=== PATIENT | male | born 1970 | race Caucasian/White ===

== ENCOUNTER 2017-08-31 12:10 | Inpatient (IN) | payer OTHER ==
[2017-08-31 16:37] VITALS: BMI 27.3
[2017-08-31] MEDS ORDERED: MAGNESIUM CITRATE 300 ML BOTTLE PO PRN (20:22)
[2017-08-31] MEDS ORDERED: guaiFENesin/D-METHORPHAN HB 10 ML UNIT-DOSE CUPS PO PRN (20:22)
[2017-08-31] MEDS ORDERED: P-EPHED 60MG/TRIPROLIDI 2.5MG TABLET PO PRN (20:22)
[2017-08-31] MEDS ORDERED: LOPERAMIDE HCL 2 MG CAPSULE PO PRN (20:22)
[2017-08-31] MEDS ORDERED: ACETAMINOPHEN 325 MG TABLET (FP) PO PRN (20:22)
[2017-08-31] MEDS ORDERED: MENTHOL/PHENOL 1 EACH UD MM PRN (20:22)
[2017-08-31] MEDS ORDERED: IBUPROFEN 400 MG TABLET (FP) PO PRN (20:22)
[2017-08-31] MEDS ORDERED: MAGNESIUM HYDROX 2400MG/30ML ORAL SUSPENSION 30 ML CUP PO PRN (20:22)
[2017-08-31] MEDS ORDERED: MAG HYDROX/AL HYDROX/SIMETH 30 ML UNIT-DOSE CUP PO PRN (20:22)
--- NOTE | 2017-08-31 20:31 | HP ---
Admission ROS [facility] Chief Complaint: I am here for rehab. Allergies/Adverse Reactions: Allergies Allergy/AdvReac Type Severity Reaction Status Date / Time No Known Allergies Allergy Verified 08/31/17 17:03 History of Present Illness: 47 yo male with hx of IV heroin, cocaine, Xanax dependence is here seeking rehab after completing detox at [facility] 08/24/17 - 08/31/17. PMHX: anxiety, depression, bipolar. Reports attempted suicide at 9 yo by hanging and attempted suicide because he didn't want to live in the [place], after he immigrated from the [place]. Reports hx of OD three times, last time about one year ago. Currently denies suicidal / homicidal ideation. Longest period of sobriety 10 years. Reports relapsed 2008 after buying house and feeling overwhelmed. Exam Limitations: No Limitations - Ebola screening Have you traveled outside of the country in the last 21 days: No Have you had contact with anyone from an Ebola affected area: No Have you been sick,other than usual withdrawal symptoms: No Do you have a fever: No - Review of Systems Constitutional: Chills, Night Sweats, Changes in sleep EENT: reports: No Symptoms Reported Respiratory: reports: No Symptoms reported Cardiac: reports: No Symptoms Reported GI: reports: No Symptoms Reported : reports: No Symptoms Reported Musculoskeletal: reports: Back Pain (low back pain 02/05) Integumentary: reports: No Symptoms Reported Neuro: reports: Tingling (both feet) Endocrine: reports: Excessive Sweating Hematology: reports: No Symptoms Reported Psychiatric: reports: Orientated x3, Anxious Other Systems: Reviewed and Negative Patient History - Patient Medical History Hx Anemia: No Hx Asthma: No Hx Chronic Obstructive Pulmonary Disease (COPD): No Hx Cancer: No Hx Cardiac Disorders: No Hx Congestive Heart Failure: No Hx Hypertension: No Hx Hypercholesterolemia: No Hx Pacemaker: No HX Cerebrovascular Accident: No Hx Seizures: No Hx Dementia: No Hx Diabetes: No Hx Gastrointestinal Disorders: No Hx Liver Disease: No Hx Genitourinary Disorders: No Hx Sexually Transmitted Disorders: No Hx Renal Disease (ESRD): No Hx Thyroid Disease: No Hx Human Immunodeficiency Virus (HIV): No Hx Hepatitis C: No Hx Depression: Yes Hx Suicide Attempt: Yes (at 9 years old ) Hx Bipolar Disorder: Yes Hx Schizophrenia: No - Patient Surgical History Past Surgical History: No Hx Neurologic Surgery: No Hx Cataract Extraction: No Hx Cardiac Surgery: No Hx Lung Surgery: No Hx Breast Surgery: No Hx Breast Biopsy: No Hx Abdominal Surgery: No Hx Appendectomy: No Hx Cholecystectomy: No Hx Genitourinary Surgery: No Hx Orthopedic Surgery: No - PPD History Previous Implant?: No Documented Results: Negative w/o proof PPD to be Administered?: Yes - Reproductive History Patient is a Female of Child Bearing Age (11 -55 yrs old): No - Smoking Cessation Smoking history: Current some day smoker Have you smoked in the past 12 months: Yes Aproximately how many cigarettes per day: 2 Hx Chewing Tobacco Use: No Initiated information on smoking cessation: Yes 'Breaking Loose' booklet given: 08/31/17 - Substance & Tx. History Hx Alcohol Use: No Hx Substance Use: Yes Substance Use Type: Cocaine, Heroin, Tranquilizers Hx Substance Use Treatment: Yes ([facility] 08/24/17 -08/31/2017) - Substances Abused Heroin Route: Injection Frequency: Daily Amount used: 1 gram and up Age of first use: 25 Date of Last Use: 08/24/17 Alprazolam (Xanax) Route: Oral Frequency: 3-6 times per week Amount used: 1 - 2 Age of first use: 46 Date of Last Use: 08/23/17 Cocaine Route: Inhalation Frequency: 3-6 times per week Amount used: 1/2 gram Age of first use: 15 Date of Last Use: 09/21/17 Family Disease History - Family Disease History Family Disease History: Diabetes: Mother (alive ), Other: Father (, [place], Cocaine and Alcohol), Mother Admission Physical Exam [facility] - Vital Signs Vital Signs: Vital Signs - 24 hr 08/31/17 16:34 Temperature 97.7 F Pulse Rate 60 Respiratory 18 Rate Blood Pressure 138/75 - Physical General Appearance: Yes: No Apparent Distress, Nourished, Appropriately Dressed , Anxious HEENTM: Yes: EOMI, Hearing grossly Normal, Normal ENT Inspection, Normocephalic , Normal Voice, JANAE, Pharynx Normal, Tm's normal Respiratory: Yes: Chest Non-Tender, Lungs Clear, Normal Breath Sounds, No Respiratory Distress, No Accessory Muscle Use Neck: Yes: No masses,lesions,Nodules, Trachea in good position Breast: Yes: Breast Exam Deferred Cardiology: Yes: Regular Rhythm, Regular Rate Abdominal: Yes: Normal Bowel Sounds, Non Tender, Flat, Soft Genitourinary: Yes: Within Normal Limits Back: Yes: Normal Inspection Musculoskeletal: Yes: full range of Motion, Gait Steady, Pelvis Stable Extremities: Yes: Normal Capillary Refill, Normal Inspection, Normal Range of Motion, Non-Tender Neurological: Yes: 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, Fully Oriented, Alert, Motor Strength 5/5, Depressed Affect Integumentary: Yes: Normal Color, Warm, Moist Lymphatic: Yes: Within Normal Limits - Diagnostic (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 (2) Cocaine dependence Current Visit: Yes Status: Chronic Qualifiers: Substance use status: uncomplicated Qualified Code(s): F14.20 - Cocaine dependence, uncomplicated (3) Opioid dependence Current Visit: Yes Status: Chronic (4) IV drug abuse Current Visit: Yes Status: Chronic (5) Difficulty sleeping Current Visit: Yes Status: Chronic (6) Psychiatric disorder Current Visit: Yes Status: Suspected (7) Low back pain Current Visit: Yes Status: Acute Qualifiers: Chronicity: acute Back pain laterality: midline Sciatica presence: without sciatica Qualified Code(s): M54.5 - Low back pain BHS Breath Alcohol Content Breath Alcohol Content: 0 Urine Drug Screen - Results Drug Screen Negative: No
[2017-08-31] MEDS ORDERED: TUBERCULIN PPD 5 TU/0.1ML VIAL ID ONE (22:09)
[2017-08-31] MEDS: CYCLOBENZAPRINE HCL 5 MG TABLET PO SCH (22:35)
[2017-08-31] MEDS: THIAMINE HCL 100 MG TABLET (FP) PO SCH (22:35)
[2017-08-31] MEDS: hydrOXYzine PAMOATE 50 MG CAPSULE (FP) PO PRN (22:35)
[2017-08-31 22:42] LABS: URINE APPEARANCE CLEAR; URINE BILIRUBIN NEGATIVE (NEGATIVE); URINE BLOOD NEGATIVE (NEGATIVE); URINE COLOR YELLOW; URINE GLUCOSE (UA) NEGATIVE (NEGATIVE); URINE KETONE NEGATIVE (NEGATIVE); URINE LEUK ESTERASE NEGATIVE (NEGATIVE); URINE NITRITE NEGATIVE (NEGATIVE); URINE PROTEIN NEGATIVE (NEGATIVE); URINE UROBILINOGEN NEGATIVE mg/dL (0.2-1.0)
[2017-09-01] MEDS: CYCLOBENZAPRINE HCL 5 MG TABLET PO SCH ×3 (06:26→21:26)
[2017-09-01 10:14] LABS: HEMATOCRIT 36.8 % (35.4-49); HEMOGLOBIN 12.8 GM/dL (11.7-16.9); MCH 31.1 pg (25.7-33.7); MCHC 34.6 g/dl (32.0-35.9); MEAN CELL VOLUME 89.8 fl (80-96); MEAN PLT VOLUME 7.8 fl (7.5-11.1); PLATELET COUNT 204 K/MM3 (134-434); WHITE BLOOD COUNT 5.4 K/mm3 (4.0-10.0)
[2017-09-01] MEDS: PRENATAL VITAMINS W/ FOLIC ACID TABLET (FP) PO SCH (10:15)
[2017-09-01 10:32] LABS: ALBUMIN 3.4 g/dl (3.4-5.0); CHLORIDE 109 mmol/L (98-107); CREATININE 1.2 mg/dL (0.7-1.3); POTASSIUM 4.7 mmol/L (3.5-5.1); SGOT/AST 14 U/L (15-37); SODIUM 142 mmol/L (136-145)
[2017-09-01 10:44] LABS: ALK PHOS 67 U/L (45-117); ANION GAP 7 (8-16); BILIRUBIN,TOTAL 0.5 mg/dL (0.2-1.0); BLOOD UREA NITROGEN 17 mg/dL (7-18); CALCIUM 8.4 mg/dL (8.5-10.1); CO2 26 mmol/L (21-32); GLUCOSE,RANDOM 87 mg/dL (74-106); SGPT/ALT 24 U/L (12-78); TOT PROT 6.6 g/dl (6.4-8.2)
--- NOTE | 2017-09-01 12:01 | EKG ---
Test Reason : Blood Pressure : / mmHG Vent. Rate : 061 BPM Atrial Rate : 061 BPM P-R Int : 142 ms QRS Dur : 084 ms QT Int : 428 ms P-R-T Axes : 091 067 061 degrees QTc Int : 430 ms NORMAL SINUS RHYTHM NORMAL ECG NO PREVIOUS ECGS AVAILABLE Confirmed by MD Dalton, Garfield ([id number]) on 09/01/2017 12:01:07 PM Referred By: Confirmed By:Garfield Hoffman MD
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
[2017-09-01] MEDS: GABAPENTIN 100 MG CAPSULE (FP) PO SCH ×2 (14:26→21:26)
[2017-09-01] MEDS: QUEtiapine FUMARATE 100 MG TABLET (FP) PO SCH (21:26)
[2017-09-01] MEDS: THIAMINE HCL 100 MG TABLET (FP) PO SCH (21:26)
[2017-09-02] MEDS: CYCLOBENZAPRINE HCL 5 MG TABLET PO SCH ×3 (06:23→21:27)
[2017-09-02] MEDS: GABAPENTIN 100 MG CAPSULE (FP) PO SCH ×3 (06:23→21:27)
[2017-09-02] MEDS: PRENATAL VITAMINS W/ FOLIC ACID TABLET (FP) PO SCH (10:27)
[2017-09-02] MEDS: THIAMINE HCL 100 MG TABLET (FP) PO SCH (21:27)
[2017-09-02] MEDS: QUEtiapine FUMARATE 100 MG TABLET (FP) PO SCH (21:27)
[2017-09-03] MEDS: GABAPENTIN 100 MG CAPSULE (FP) PO SCH ×3 (06:22→21:25)
[2017-09-03] MEDS: CYCLOBENZAPRINE HCL 5 MG TABLET PO SCH ×3 (06:23→21:25)
[2017-09-03] MEDS: PRENATAL VITAMINS W/ FOLIC ACID TABLET (FP) PO SCH (10:24)
[2017-09-03] MEDS: THIAMINE HCL 100 MG TABLET (FP) PO SCH (21:24)
[2017-09-03] MEDS: QUEtiapine FUMARATE 100 MG TABLET (FP) PO SCH (21:25)
[2017-09-04] MEDS: CYCLOBENZAPRINE HCL 5 MG TABLET PO SCH ×3 (06:20→21:25)
[2017-09-04] MEDS: GABAPENTIN 100 MG CAPSULE (FP) PO SCH ×3 (06:20→21:25)
[2017-09-04] MEDS: PRENATAL VITAMINS W/ FOLIC ACID TABLET (FP) PO SCH (10:19)
--- NOTE | 2017-09-04 17:09 | PN ---
[facility] Progress Note Note: Vital Signs Temperature 98.9 F 09/04/17 07:01 Pulse Rate 75 09/04/17 07:01 Respiratory Rate 18 09/04/17 07:01 Blood Pressure 100/75 09/04/17 07:01 O2 Sat by Pulse Oximetry (%) Laboratory Last Values WBC 5.4 K/mm3 (4.0-10.0) 09/01/17 07:00 RBC 4.10 M/mm3 (4.00-5.60) 09/01/17 07:00 Hgb 12.8 GM/dL (11.7-16.9) 09/01/17 07:00 Hct 36.8 % (35.4-49) 09/01/17 07:00 MCV 89.8 fl (80-96) 09/01/17 07:00 MCH 31.1 pg (25.7-33.7) 09/01/17 07:00 MCHC 34.6 g/dl (32.0-35.9) 09/01/17 07:00 RDW 14.0 % (11.9-15.9) 09/01/17 07:00 Plt Count 204 K/MM3 (134-434) 09/01/17 07:00 MPV 7.8 fl (7.5-11.1) 09/01/17 07:00 Sodium 142 mmol/L (136-145) 09/01/17 07:00 Potassium 4.7 mmol/L (3.5-5.1) 09/01/17 07:00 Chloride 109 mmol/L (98-107) H 09/01/17 07:00 Carbon Dioxide 26 mmol/L (21-32) 09/01/17 07:00 Anion Gap 7 (8-16) L 09/01/17 07:00 BUN 17 mg/dL (7-18) 09/01/17 07:00 Creatinine 1.2 mg/dL (0.7-1.3) 09/01/17 07:00 Creat Clearance w eGFR > 60 (>60) 09/01/17 07:00 Random Glucose 87 mg/dL (74-106) 09/01/17 07:00 Calcium 8.4 mg/dL (8.5-10.1) L 09/01/17 07:00 Total Bilirubin 0.5 mg/dL (0.2-1.0) 09/01/17 07:00 AST 14 U/L (15-37) L 09/01/17 07:00 ALT 24 U/L (12-78) 09/01/17 07:00 Alkaline Phosphatase 67 U/L (45-117) 09/01/17 07:00 Total Protein 6.6 g/dl (6.4-8.2) 09/01/17 07:00 Albumin 3.4 g/dl (3.4-5.0) 09/01/17 07:00 Urine Color Yellow 08/31/17 20:38 Urine Appearance Clear 08/31/17 20:38 Urine pH 5.0 (5.0-8.0) 08/31/17 20:38 Ur Specific [place] 1.021 (1.001-1.035) 08/31/17 20:38 Urine Protein Negative (NEGATIVE) 08/31/17 20:38 Urine Glucose (UA) Negative (NEGATIVE) 08/31/17 20:38 Urine Ketones Negative (NEGATIVE) 08/31/17 20:38 Urine Blood Negative (NEGATIVE) 08/31/17 20:38 Urine Nitrite Negative (NEGATIVE) 08/31/17 20:38 Urine Bilirubin Negative (NEGATIVE) 08/31/17 20:38 Urine Urobilinogen Negative mg/dL (0.2-1.0) 08/31/17 20:38 Ur Leukocyte Esterase Negative (NEGATIVE) 08/31/17 20:38 RPR Titer Nonreactive (NONREACTIVE) 09/01/17 07:00 HIV 1&2 Antibody Screen Negative 09/01/17 07:00 HIV P24 Antigen Negative 09/01/17 07:00 Patient requested to review albs with provider. Lab results reviewed with patient and verbalize understanding.
[2017-09-04] MEDS: QUEtiapine FUMARATE 100 MG TABLET (FP) PO SCH (21:25)
[2017-09-04] MEDS: THIAMINE HCL 100 MG TABLET (FP) PO SCH (21:25)
[2017-09-04] MEDS: COLLOIDAL OATMEAL 1 BAR EACH TP PRN (21:25)
[2017-09-05] MEDS: CYCLOBENZAPRINE HCL 5 MG TABLET PO SCH ×3 (06:31→21:23)
[2017-09-05] MEDS: GABAPENTIN 100 MG CAPSULE (FP) PO SCH ×3 (06:31→21:23)
[2017-09-05] MEDS: PRENATAL VITAMINS W/ FOLIC ACID TABLET (FP) PO SCH (09:51)
[2017-09-05] MEDS: THIAMINE HCL 100 MG TABLET (FP) PO SCH (21:23)
[2017-09-05] MEDS: QUEtiapine FUMARATE 100 MG TABLET (FP) PO SCH (21:23)
[2017-09-06] MEDS: CYCLOBENZAPRINE HCL 5 MG TABLET PO SCH ×3 (06:34→21:03)
[2017-09-06] MEDS: GABAPENTIN 100 MG CAPSULE (FP) PO SCH ×3 (06:34→21:03)
[2017-09-06] MEDS: PRENATAL VITAMINS W/ FOLIC ACID TABLET (FP) PO SCH (09:55)
[2017-09-06] MEDS: QUEtiapine FUMARATE 100 MG TABLET (FP) PO SCH (21:03)
[2017-09-06] MEDS: THIAMINE HCL 100 MG TABLET (FP) PO SCH (21:03)
[2017-09-07] MEDS: CYCLOBENZAPRINE HCL 5 MG TABLET PO SCH ×3 (06:27→21:23)
[2017-09-07] MEDS: GABAPENTIN 100 MG CAPSULE (FP) PO SCH ×3 (06:27→21:23)
[2017-09-07] MEDS: PRENATAL VITAMINS W/ FOLIC ACID TABLET (FP) PO SCH (10:12)
[2017-09-07] MEDS: QUEtiapine FUMARATE 100 MG TABLET (FP) PO SCH (21:23)
[2017-09-07] MEDS: THIAMINE HCL 100 MG TABLET (FP) PO SCH (21:23)
[2017-09-08] MEDS: hydrOXYzine PAMOATE 50 MG CAPSULE (FP) PO PRN (00:35)
[2017-09-08] MEDS: GABAPENTIN 100 MG CAPSULE (FP) PO SCH ×3 (06:28→21:22)
[2017-09-08] MEDS: CYCLOBENZAPRINE HCL 5 MG TABLET PO SCH ×3 (06:28→21:22)
[2017-09-08] MEDS: PRENATAL VITAMINS W/ FOLIC ACID TABLET (FP) PO SCH (09:59)
[2017-09-08] MEDS: THIAMINE HCL 100 MG TABLET (FP) PO SCH (21:22)
[2017-09-08] MEDS: QUEtiapine FUMARATE 100 MG TABLET (FP) PO SCH (21:22)
[2017-09-09] MEDS: GABAPENTIN 100 MG CAPSULE (FP) PO SCH ×3 (06:24→21:21)
[2017-09-09] MEDS: CYCLOBENZAPRINE HCL 5 MG TABLET PO SCH ×3 (06:24→21:21)
[2017-09-09] MEDS: PRENATAL VITAMINS W/ FOLIC ACID TABLET (FP) PO SCH (10:03)
[2017-09-09] MEDS: QUEtiapine FUMARATE 100 MG TABLET (FP) PO SCH (21:21)
[2017-09-09] MEDS: THIAMINE HCL 100 MG TABLET (FP) PO SCH (21:21)
[2017-09-10] MEDS: CYCLOBENZAPRINE HCL 5 MG TABLET PO SCH ×3 (06:24→21:32)
[2017-09-10] MEDS: GABAPENTIN 100 MG CAPSULE (FP) PO SCH ×3 (06:24→21:32)
[2017-09-10] MEDS: PRENATAL VITAMINS W/ FOLIC ACID TABLET (FP) PO SCH (10:36)
[2017-09-10] MEDS: THIAMINE HCL 100 MG TABLET (FP) PO SCH (21:32)
[2017-09-10] MEDS: QUEtiapine FUMARATE 100 MG TABLET (FP) PO SCH (21:32)
[2017-09-11] MEDS: CYCLOBENZAPRINE HCL 5 MG TABLET PO SCH ×3 (06:29→21:28)
[2017-09-11] MEDS: COLLOIDAL OATMEAL 1 BAR EACH TP PRN (06:29)
[2017-09-11] MEDS: GABAPENTIN 100 MG CAPSULE (FP) PO SCH ×3 (06:29→21:28)
[2017-09-11] MEDS: PRENATAL VITAMINS W/ FOLIC ACID TABLET (FP) PO SCH (09:53)
[2017-09-11] MEDS: THIAMINE HCL 100 MG TABLET (FP) PO SCH (21:27)
[2017-09-11] MEDS: QUEtiapine FUMARATE 100 MG TABLET (FP) PO SCH (21:28)
[2017-09-12] MEDS: GABAPENTIN 100 MG CAPSULE (FP) PO SCH ×3 (06:29→21:32)
[2017-09-12] MEDS: CYCLOBENZAPRINE HCL 5 MG TABLET PO SCH ×3 (06:29→21:32)
[2017-09-12] MEDS: PRENATAL VITAMINS W/ FOLIC ACID TABLET (FP) PO SCH (10:04)
[2017-09-12] MEDS: THIAMINE HCL 100 MG TABLET (FP) PO SCH (21:32)
[2017-09-12] MEDS: QUEtiapine FUMARATE 100 MG TABLET (FP) PO SCH (21:32)
[2017-09-13] MEDS: GABAPENTIN 100 MG CAPSULE (FP) PO SCH ×3 (06:41→21:31)
[2017-09-13] MEDS: CYCLOBENZAPRINE HCL 5 MG TABLET PO SCH ×3 (06:41→21:31)
[2017-09-13] MEDS: PRENATAL VITAMINS W/ FOLIC ACID TABLET (FP) PO SCH (10:42)
[2017-09-13] MEDS: QUEtiapine FUMARATE 100 MG TABLET (FP) PO SCH (21:31)
[2017-09-13] MEDS: THIAMINE HCL 100 MG TABLET (FP) PO SCH (21:31)
[2017-09-14 07:06] VITALS: BP 131/81; PULSE 81; TEMP 98.5
[2017-09-14] MEDS: GABAPENTIN 100 MG CAPSULE (FP) PO SCH (07:07)
[2017-09-14] MEDS: CYCLOBENZAPRINE HCL 5 MG TABLET PO SCH (07:08)
--- NOTE | 2017-09-14 08:09 | PN ---
Psychiatric Progress Note Vital Signs: Vital Signs Period Temp Pulse Resp BP Sys/Aquino Pulse Ox Last 24 Hr 98.5 F 81 18-18 131/81 Date of Session: 09/14/17 Chief Complaint:: Discharge Note HPI: Patient addressing Opoid, Sedative and Cocaine Dependence comorbid with Nicotine Dependence and Bipolar Disorder ROS: LBP Current Medications: Active Medications Generic Name Dose Route Start Last Admin Trade Name Freq PRN Reason Stop Dose Admin Acetaminophen 650 mg 08/31/17 20:22 09/08/17 00:35 Tylenol - PO 650 mg Q4H PRN Administration FEVER Al Hydroxide/Mg Hydroxide 30 ml 08/31/17 20:22 Mylanta Oral Suspension - PO Q6H PRN DYSPEPSIA Colloidal Oatmeal 1 applic 09/04/17 16:23 09/11/17 06:29 Aveeno Soap - TP 1 applic DAILY PRN Administration HYGEINE Cyclobenzaprine HCl 5 mg 08/31/17 22:00 09/14/17 07:08 Cyclobenzaprine Hcl PO 5 mg TID MARLENE Administration Eucalyptus/Menthol/Phenol/Sorbitol 1 each 08/31/17 20:22 Cepastat Lozenge - MM Q4H PRN SORE THROAT Gabapentin 100 mg 09/01/17 14:00 09/14/17 07:07 Neurontin - PO 100 mg TID MARLENE Administration Guaifenesin 10 ml 08/31/17 20:22 Robitussin Dm - PO Q6H PRN COUGH Hydroxyzine Pamoate 50 mg 08/31/17 20:48 09/08/17 00:35 Vistaril - PO 50 mg TID PRN Administration AGITATION Ibuprofen 400 mg 08/31/17 20:22 Motrin - PO Q6H PRN Pain level 4-6 Loperamide HCl 4 mg 08/31/17 20:22 Imodium - PO Q6H PRN DIARRHEA Magnesium Citrate 300 ml 08/31/17 20:22 Citroma - PO Q48H PRN CONSTIPATION Magnesium Hydroxide 30 ml 08/31/17 20:22 Milk Of Magnesia - PO DAILY PRN CONSTIPATION Multivit/Folic Acid/Iron 1 tab 09/01/17 10:00 09/13/17 10:42 Vitamins (Sjr) - PO Not Given DAILY MARLENE Pseudoephedrine/Triprolidine 1 combo 08/31/17 20:22 Actifed - PO TID PRN NASAL CONGESTION Quetiapine Fumarate 100 mg 09/01/17 22:00 09/13/17 21:31 Seroquel - PO 100 mg HS MARLENE Administration Thiamine HCl 100 mg 08/31/17 22:00 09/13/17 21:31 Vitamin B1 - PO 100 mg HS MARLENE Administration Current Side Effect: No Lab tests ordered: Yes Lab tests reviewed: Yes Provider note:: Patient has completed this program today. He has met his treatment goals and will continue to address his issues in penitentiary residential treatment at [facility]. Told pattern chart writer that from his participation in this program, he has learned to establish a sober support network in order to maintain abstinence. He responded well to Seroquel 100 mg po HS and Gabapentin 100 mg po TID. Scripts for these medications are electronically transmitted to his pharmacy. He is stable for discharge today Total face to face time:: 35 Mental Status Exam - Mental Status Exam Alert and Oriented to: Time, Place, Person Cognitive Function: Fair Patient Appearance: Well Groomed Mood: Hopeful, Euthymic Affect: Blunted Patient Behavior: Cooperative Speech Pattern: Clear Voice Loudness: Normal Thought Process: Intact, Goal Oriented Thought Disorder: Not Present Hallucinations: Denies Suicidal Ideation: Denies Homicidal Ideation: Denies Insight/Judgement: Fair Sleep: Fair Appetite: Good Muscle strength/Tone: Normal Gait/Station: Normal Psychiatric Treatment Plan - Problem List (1) Opioid dependence Current Visit: Yes (2) Cocaine dependence Current Visit: Yes Qualifiers: Substance use status: uncomplicated Qualified Code(s): F14.20 - Cocaine dependence, uncomplicated (3) Sedative dependence Current Visit: Yes (4) Nicotine dependence Current Visit: Yes (5) Bipolar 2 disorder Current Visit: Yes (6) Low back pain Current Visit: Yes Qualifiers: Chronicity: acute Back pain laterality: midline Sciatica presence: without sciatica Qualified Code(s): M54.5 - Low back pain Initial treatment plan: Patient is discharged today and referred to [facility] for penitentiary residential treatment
== END 2017-09-14 08:00 | disposition home or self-care (01) | DRG 772 ==
LOC: YASAS 12:10 → Y5N 18:11
PROVIDERS: ADMIT Psychiatry & Neurology Psychiatry; ATTEND Psychiatry & Neurology Psychiatry
PROC: HZ42ZZZ Group Counseling for Substance Abuse Treatment, Cognitive-Behavioral (ICD-10-PCS; principal; 2017-08-31)
DX: F11.20 Opioid dependence, uncomplicated (principal); F13.20 Sedative, hypnotic or anxiolytic dependence, uncomplicated; F14.20 Cocaine dependence, uncomplicated; F17.210 Nicotine dependence, cigarettes, uncomplicated; F31.81 Bipolar II disorder; M54.5 Low back pain; Z91.5 Personal history of self-harm
CPT/HCPCS: 36415; 80053; 81003; 85027; 86593; 87389; 93005; 93010